=== PATIENT | female | born 1960 | race Caucasian/White ===

== ENCOUNTER → 2025-01-03 06:35 | Outpatient (REF) | payer MEDICARE, OTHER, SELFPAY | LOC: WDC 06:35 | PROVIDERS: ATTENDING PHYSICIAN Family Medicine | DX: Z12.31 Encounter for screening mammogram for malignant neoplasm of breast (principal) | CPT/HCPCS: 77063; 77067 ==

== ENCOUNTER → 2025-01-12 09:37 | Outpatient (REF) | payer MEDICARE, OTHER, SELFPAY | LOC: WDC 09:37 | PROVIDERS: ATTENDING PHYSICIAN Family Medicine | DX: R92.8 Other abnormal and inconclusive findings on diagnostic imaging of breast (principal) | CPT/HCPCS: 76642 ==